=== PATIENT | male | born 1960 | race Caucasian/White ===

== ENCOUNTER 2021-10-03 07:12 | Inpatient (IN) | payer MEDICARE, MEDICAID ==
[2021-10-03] VITALS (9 sets, daily range): BP systolic 156–198; BP diastolic 84–114
[~2021-10-03] VITALS: Ht 180.3 cm; Wt 104.3 kg
[~2021-10-03 07:12] MED LIST: ATENOLOL 100MG100 MG PO; FLEXERIL PO; GEMFIBROZIL 60600 MG PO; GLIPIZIDE ER5 MG PO; GLUCOTROL5 MG PO; HYDROCHLOROTHIA25 M1; LISINOPRIL-HCT1 EAC2 PO; LISINOPRIL10 MG PO; MEDROLDOSEPACK PO; METFORMIN HCL500 MG PO; NAPROSYN500 MG PO; NORCO 5-325 TA1 EACH PO; PERCOCET 5-3251 EACH PO; REGLAN 10 MG TA10 MG PO; ROBAXIN 750 MG750 MG PO; SIMVASTATIN40 MG PO; TENORETIC 1001 EACH PO; VICODIN 5-5001 EACH PO; VYTORIN 10-801 EACH PO; ZANTAC 150MG T150 M1 PO
[2021-10-03] MEDS ORDERED: GLIPIZIDE 10 MG10 MG PO (07:19)
[2021-10-03] MEDS ORDERED: NEURONTIN 400M400 M2 PO (07:20)
[2021-10-03] MEDS ORDERED: LOPRESSOR50 MG PO (07:20)
[2021-10-03] MEDS ORDERED: TOPROL XL50 MG (07:20)
[2021-10-03] MEDS ORDERED: LIPITOR 20 MG T20 M1 PO (07:21)
[2021-10-03] MEDS ORDERED: ZESTRIL40 MG PO (07:21)
[2021-10-03 08:36] LABS: ABSOLUTE EOSINOPHILS 0.1 thou/uL (0.0-0.7); ABSOLUTE LYMPHOCYTES 1.5 thou/uL (0.8-5.3); ABSOLUTE MONOCYTES 0.4 thou/uL (0.0-1.2); ABSOLUTE NEUTROPHILS 3.7 thou/uL (1.6-8.1); BASOPHILS 0.5 %; EOSINOPHILS 1.5 %; HEMATOCRIT 38.1 % (42.0-52.0); HEMOGLOBIN 12.7 gm/dL (14.0-18.0); LYMPHOCYTES 26.5 %; MCH 30.8 pg (26.0-34.0); MCHC 33.3 g/dL (28.0-37.0); MCV 92.6 fL (80.0-100.0); MONOCYTES 7.2 %; MPV 7.6 fl. (7.2-11.1); NUCLEATED RBCS 0 /100WBC; PLATELET COUNT* 224 thou/uL (150-400); POLYS 64.3 %; RBC 4.11 mil/uL (4.50-6.00); WBC 5.8 thou/uL (4.0-11.0)
[2021-10-03 08:40] LABS: CALCIUM 8.4 mg/dL (8.5-10.1); CREATININE 1.3 mg/dL (0.6-1.3); POTASSIUM 3.7 mmol/L (3.5-5.1)
[2021-10-03 08:44] LABS: ALBUMIN 3.1 g/dL (3.4-5.0); TOTAL BILIRUBIN 0.3 mg/dL (<0.1-1.0); TOTAL PROTEIN 7.1 g/dL (6.4-8.2)
[2021-10-03] MEDS ORDERED: ROXICODONE30 MG PO (09:33)
--- NOTE | 2021-10-03 10:49 | EKG ---
[place] [address] ELECTROCARDIOGRAM REPORT Name: KIMBERLY CUELLAR JR Room: [place] [address] [facility]#: [id number] Admission: 10/03/21 Attend Phys: Romelia Lincoln, Discharge: Date of : 58 Date of Service: 10/03/21 0720 Report #: [id number] THIS REPORT FOR: //name// [facility] ED Test Date: 2021-10-03 Test Time: 07:20:33 Pat Name: KIMBERLY CUELLAR Department: Room: [facility] Gender: M Integrity Director: VALENTINE : 1960 Requested By: Jose Guadalupe South Order Number: [id number] MD: Albert Silva Measurements Intervals [employer] Rate: 95 P: 42 [place]: 167 QRS: 38 QRSD: 83 T: 58 QT: 363 QTc: 457 Interpretive Statements Sinus rhythm Compared to ECG 11/08/2009 16:25:42 Sinus tachycardia no longer present Electronically Signed On 10-03-2021 10:49:18 KEY ACCOUNT EXECUTIVE by Albert Silva [email or web address] <ELECTRONICALLY SIGNED> By: Albert Silva MD, [facility] 10/03/21 1049 9 9 Albert Silva MD, [facility] /EPI
--- NOTE | 2021-10-03 13:10 | NUR ---
ER ADMIT TO RM 230 TO ROOM VIA CART ORIENTED TO RM AND CALL LIGHT C/O GENERALIZED PAIN WILL CHECK EMAR FOR PAIN MED ORDERS SEIZURE PRECAUTIONS IMPLEMENTED
[2021-10-04] VITALS (8 sets, daily range): BP systolic 127–198; BP diastolic 60–104
--- NOTE | 2021-10-04 04:07 | NUR ---
PT A&OX4, VSS ON ROOM AIR, IV SALINE LOCKED, SEIZURE PRECAUTIONS IN PLACE, PT UP WITH SBA, PAIN CONTROLED WITH SCHEDULED OXYCODONE. PT SLEEPING WELL, WILL CONTINUE TO MONITOR.
[2021-10-04 05:24] LABS: HEMATOCRIT 38.3 % (42.0-52.0); HEMOGLOBIN 13.2 gm/dL (14.0-18.0); MCH 31.6 pg (26.0-34.0); MCHC 34.6 g/dL (28.0-37.0); MCV 91.2 fL (80.0-100.0); MPV 7.9 fl. (7.2-11.1); RBC 4.2 mil/uL (4.50-6.00); WBC 7.2 thou/uL (4.0-11.0)
[2021-10-04 05:55] LABS: BE 0.7 mmol/L (-2 to +3); PO2 92.7 mmHg (75.0-100.0); pH 7.417 (7.340-7.450)
[2021-10-04 06:10] LABS: ALBUMIN 3.1 g/dL (3.4-5.0); ALKALINE PHOSPHATASE 99 U/L (46-116); ANION GAP 9 mmol/L (7-16); BUN 17 mg/dL (7-18); CALCIUM 8.2 mg/dL (8.5-10.1); CHLORIDE 106 mmol/L (98-107); CO2 24 mmol/L (21-32); CREATININE 1.3 mg/dL (0.6-1.3); GLUCOSE 136 mg/dL (70-99); MAGNESIUM 1.8 mg/dL (1.8-2.4); POTASSIUM 3.6 mmol/L (3.5-5.1); SGOT 20 U/L (15-37); SGPT 33 U/L (30-65); SODIUM 139 mmol/L (136-145); TOTAL BILIRUBIN 0.2 mg/dL (<0.1-1.0); TOTAL PROTEIN 7.4 g/dL (6.4-8.2); TRIGLYCERIDE 500 mg/dL (<150); VLDL 100 mg/dL (<40)
[2021-10-04 06:40] LABS: SERUM ASSESSMENT Clear
[2021-10-04 06:41] LABS: CHOLESTEROL 196 mg/dL (<200); HDL CHOLESTEROL 30 mg/dL (>40); TC:HDL 6.5 Ratio (Not establshd)
[2021-10-04 07:07] LABS: GLYCOHEMOGLOBIN (HGB A1C) 7.7 % (4.8-5.6)
--- NOTE | 2021-10-04 18:49 | NUR ---
PT IS A&O X4 . PT IS ON RM. PT HAS HX OF SEIZURES AND HTN. PT HAD CONSULT WITH BIPIN NO MRI AND NEW MED KEPPRA. PT DID HAVE BM THIS SHIFT. PT IS STANDBY WHEN UP. PT IS RESTING WATCHING TV WITH CALL LIGHT IN REACH.
[2021-10-05 04:00] VITALS: BP 135/81
[2021-10-05 07:58] VITALS: BP 149/95
[2021-10-05] MEDS ORDERED: KEPPRA 500 MG500 M1 PO (09:53)
[2021-10-05] MEDS ORDERED: MAXZIDE-25 MG1 EACH PO (10:00)
[2021-10-05 10:35] LABS: ABSOLUTE EOSINOPHILS 0.1 thou/uL (0.0-0.7); ABSOLUTE LYMPHOCYTES 1.9 thou/uL (0.8-5.3); ABSOLUTE MONOCYTES 0.4 thou/uL (0.0-1.2); ABSOLUTE NEUTROPHILS 2.9 thou/uL (1.6-8.1); BASOPHILS 0.4 %; EOSINOPHILS 1.8 %; HEMATOCRIT 37.2 % (42.0-52.0); HEMOGLOBIN 12.7 gm/dL (14.0-18.0); LYMPHOCYTES 36.2 %; MCHC 34.1 g/dL (28.0-37.0); MCV 90.8 fL (80.0-100.0); MONOCYTES 6.9 %; MPV 7.6 fl. (7.2-11.1); NUCLEATED RBCS 0 /100WBC; PLATELET COUNT* 232 thou/uL (150-400); POLYS 54.7 %; RBC 4.09 mil/uL (4.50-6.00); RDW-CV 11.9 % (10.5-14.5); WBC 5.4 thou/uL (4.0-11.0)
[2021-10-05 10:48] LABS: ALBUMIN 2.8 g/dL (3.4-5.0); ALKALINE PHOSPHATASE 90 U/L (46-116); ANION GAP 7 mmol/L (7-16); BUN 19 mg/dL (7-18); CALCIUM 8.3 mg/dL (8.5-10.1); CHLORIDE 107 mmol/L (98-107); CHOLESTEROL 141 mg/dL (<200); CO2 29 mmol/L (21-32); CREATININE 1.4 mg/dL (0.6-1.3); GLUCOSE 151 mg/dL (70-99); HDL CHOLESTEROL 28 mg/dL (>40); LDL CHOLESTEROL 55 mg/dL (<100); POTASSIUM 4.1 mmol/L (3.5-5.1); SGOT 22 U/L (15-37); SGPT 36 U/L (30-65); SODIUM 143 mmol/L (136-145); TOTAL BILIRUBIN 0.4 mg/dL (<0.1-1.0); TOTAL PROTEIN 6.6 g/dL (6.4-8.2); TRIGLYCERIDE 290 mg/dL (<150); VLDL 58 mg/dL (<40)
[2021-10-05 10:49] VITALS: BP 149/95
[2021-10-05 10:57] LABS: SERUM ASSESSMENT Clear
--- NOTE | 2021-10-05 11:45 | NUR ---
Reviewed discharge teaching with patient; verbalized understanding. IV and telemetry dc'd. Awaiting for discharge home.
== END 2021-10-05 12:50 | disposition home or self-care (01) | DRG 101 ==
LOC: M.ERS 07:12 → M.TBA-ER 08:03 → M.2W 15:39
PROVIDERS: Family Medicine; Internal Medicine; ADMIT Internal Medicine; ATTEND Internal Medicine
DX: G40.89 Other seizures (principal); G89.29 Other chronic pain; I10 Essential (primary) hypertension; E78.5 Hyperlipidemia, unspecified; G47.30 Sleep apnea, unspecified; E11.9 Type 2 diabetes mellitus without complications; M79.669 Pain in unspecified lower leg; Z20.822 Contact with and (suspected) exposure to COVID-19; Z90.49 Acquired absence of other specified parts of digestive tract; Z87.828 Personal history of other (healed) physical injury and trauma; Z79.899 Other long term (current) drug therapy; Z79.84 Long term (current) use of oral hypoglycemic drugs; Z91.041 Radiographic dye allergy status